=== PATIENT | female | born 2000 | race Caucasian/White ===

== ENCOUNTER 2022-02-25 01:15 | Emergency (ER) | payer BC, SELFPAY ==
[2022-02-25 01:17] VITALS: BP 128/88; PULSE 79; RESP 17; TEMP 37.1; O2SAT 99; BMI 23.3
[2022-02-25] MEDS: SUMAtriptan 6 MG/0.5 ML Vial SC (02:00)
--- NOTE | 2022-02-25 02:39 | EDS_ITS ---
HPI History of Present Illness Chief Complaint: Headache Informant: patient Narrative Narrative: Patient presenting with headache. It started yesterday, she states she woke up with it. It is frontal and throbbing in nature. Has been worsening. Has tried Excedrin, Tylenol and ibuprofen with no relief. Associated photosensitivity. Does have a history of migraines. Try to go to sleep but could not because of the pain. Contacted [facility] [employer] (she is a college [employer] student) who recommended she come to the ER to discuss migraine cocktail. No report of any fevers. No other complaints at this time. Patient has a Nexplanon and is not concerned for . PFSH PFS Home Medications NK 02/25/22 [History Last Taken Unknown] Allergy/AdvReac Type Severity Reaction Status Date / Time No Known Allergies Allergy Verified 02/25/22 01:20 Social History Smoking Status: Never smoker ROS ROS ED Constitutional Constitutional ED: Denies chills or fever(s) Eyes Eyes: Reports other Details: Photophobia ; Denies change in vision ENT ENT ED: Denies rhinorrhea or sore throat Cardiovascular Cardiovascular: Denies chest pain Respiratory/Chest Respiratory/Chest: Denies cough or dyspnea Gastrointestinal Gastrointestinal: Reports nausea; Denies vomiting Genitourinary Genitourinary ED: Denies dysuria or hematuria Musculoskeletal Musculoskeletal: Denies arthralgias, myalgias or neck pain Integumentary Denies rash Neurologic Neurologic: Reports headache(s); Denies paresthesias or weakness Psychiatric Psychiatric: Denies anxiety Hematologic/Lymphatic Hematologic/Lymphatic: Denies easy bleeding EXAM Physical Exam Const Vital Signs: 02/25/22 01:17 02/25/22 02:48 Temperature 98.7 F Temperature Source Temporal Pulse Rate 79 95 Respiratory Rate 17 16 Blood Pressure 128/88 H 117/85 H Blood Pressure Mean 101 Pulse Ox 99 95 Oxygen Delivery Method Room Air Positive well nourished and well developed General Appearance ED: well developed and NAD HEENT Reports normocephalic, TM's clear and moist mucous membranes atraumatic Tympanic Membrane ED: Yes TM's clear Eyes PERRL and EOMs intact bilaterally Neck supple, no meningeal signs and no JVD Resp normal respiratory effort and clear to auscultation bilaterally Cardio regular rate, regular rhythm and no murmurs GI non-tender and non-distended Extremity normal to inspection and full ROM Neuro oriented x3 and no sensory deficits noted Motor Exam: strength 5/5 throughout; Negative for general weakness Psych mental status grossly normal Skin Lesions: no lesions Rashes: no rashes MDM MDM MDM Narrative Medical decision making narrative: Patient evaluated for headache. Seems consistent with migraine headache. Physical exam is normal with normal neurologic exam. No meningeal signs. G radual onset of headache so low suspicion for subarachnoid hemorrhage. Patient is given a dose of Imitrex with improvement of her symptoms. On repeat evaluation her headache feels much better but she is nauseous. She is then given a dose of Zofran. Will be discharged home. Counseled return precautions. Encouraged follow-up with [facility]. Given referral for primary care doctor. Patient verbalizes agreement and understanding with this plan. Discharge Plan Triage Chief Complaint: Headache ED Provider: Louann Stone Dx/Rx/DC Orders Clinical Impression: Migraine Prescriptions: No Action NK Primary Care Provider: Care Physician,No Primary Referrals: Elizabeth Khanna, [Med Staff - [place] Work[facility]] - As Needed Care Physician,No Primary [Primary Care Provider] - Disposition Disposition: Home, Self Care Discharge Date/Time: 02/25/22 02:49
[2022-02-25 02:48] VITALS: BP 117/85; PULSE 95; RESP 16; O2SAT 95
== END 2022-02-25 02:49 | disposition home or self-care (01) ==
PROVIDERS: Emergency Provider Emergency Medicine; Visit Provider Emergency Medicine
DX: G43.909 Migraine, unspecified, not intractable, without status migrainosus (principal); R11.0 Nausea
CPT/HCPCS: 99282; J3030